=== PATIENT | male | born 1940 | race Caucasian/White ===

== ENCOUNTER 2018-11-03 10:04 | Inpatient (IN) | payer MEDICARE, BC ==
--- NOTE | 2018-10-25 01:45 | NUR ---
Patient Blood glucose was 68, PT was given oral dextrose, blood sugar went up to 73, Pt requested cranberry juice as well. Addendum: 11/04/18 at 0140 by Jason Horowitz RN The date is wrong. This note is for 11/03/18 @ 8029
[~2018-11-03] VITALS: Ht 172.7 cm; Wt 63.6 kg
[~2018-11-03 10:04] MED LIST: CARV-50 PO; CLOP75TA35 PO; DUTA0.5C40 PO; GLIP-126 PO; METF1000 PO; NOR5T PO; ZINC50TA37 PO
[2018-11-03 10:26] LABS: BASOPHILS # (AUTO) 0.1 X10'3 (0-0.2); BASOPHILS % (AUTO) 1.1 % (0-1); EOSINOPHILS # (AUTO) 0.6 X10'3 (0-0.9); EOSINOPHILS % (AUTO) 6.7 % (0-6); HEMOGLOBIN 11.4 g/dl (14.0-17.9); LYMPHOCYTES # (AUTO) 2.1 X10'3 (1.1-4.8); LYMPHOCYTES % (AUTO) 23.5 % (21-51); MEAN CORPUSCULAR HEMOGLOBIN 28.4 PG (27.0-31.0); MEAN CORPUSCULAR HGB CONC 33.5 g/dL (33.0-36.5); MEAN CORPUSCULAR VOLUME 84.6 FL (78-98); MEAN PLATELET VOLUME 7.9 FL (7.4-10.4); MONOCYTES # (AUTO) 0.4 X10'3 (0-0.9); MONOCYTES % (AUTO) 4.8 % (2-12); NEUTROPHILS # (AUTO) 5.6 X10'3 (1.8-7.7); NEUTROPHILS % (AUTO) 63.9 % (42-75); PLATELET COUNT 184 X10'3 (140-440); RED BLOOD COUNT 4.02 X10'6 (4.70-6.10); RED CELL DISTRIBUTION WIDTH 13.7 % (11.5-14.5); WHITE BLOOD COUNT 8.8 X10'3 (4.5-11.0)
[2018-11-03 10:43] LABS: ALANINE AMINOTRANSFERASE 22 U/L (12-78); ALBUMIN 3.4 G/DL (3.4-5.0); ALKALINE PHOSPHATASE 69 IU/L (46-116); ANION GAP 11 (8-16); ASPARTATE AMINO TRANSFERASE 19 U/L (10-37); BILIRUBIN,TOTAL 0.3 MG/DL (0.1-1.0); BLOOD UREA NITROGEN 52 MG/DL (7-18); BUN/CREATININE RATIO 13.4 (5.4-32.0); CALCIUM 8.3 MG/DL (8.5-10.1); CHLORIDE 113 MMOL/L (99-107); CREATININE 3.89 MG/DL (0.60-1.10); GLUCOSE 67 MG/DL (70-104); POTASSIUM 4.9 MMOL/L (3.5-5.1); SODIUM 146 MMOL/L (135-145); TOTAL PROTEIN 6.7 G/DL (6.4-8.2); eGFR 15 ML/MIN
[2018-11-03 10:44] LABS: PARTIAL THROMBOPLASTIN TIME 30 SECONDS (22-32)
[2018-11-03] MEDS ORDERED: dextrose 10% 250ml bag IV ONE (10:45)
[2018-11-03 10:47] LABS: TROPONIN I < 0.04 NG/ML (0.0-0.05)
[2018-11-03] MEDS ORDERED: normal saline 1000ml 1,000 ML IV ONE (11:00)
--- NOTE | 2018-11-03 11:00 | NUR ---
CT SCAN RESULTS GIVEN TO PATIENT AND FAMILY. PATIENT DRANK 6 OZ. JUICE AND RETAINED WITHOUT EVIDENCE OF GAGGING OR CHOKING. SWALLOW REFLEX NORMAL.
[2018-11-03] MEDS ORDERED: aspirin 325mg tablet PO ONE (11:10)
[2018-11-03] MEDS ORDERED: magnesium hydroxide 30ml (MOM) UD suspension PO PRN (11:25)
[2018-11-03] MEDS ORDERED: glucagon, human recombinant 1mg kit SUBCUT PRN (11:25)
[2018-11-03] MEDS ORDERED: insulin Lispro (HumaLOG) vial - multi-dose SQ SCH (11:25)
[2018-11-03] MEDS ORDERED: mag hydrox/Alum hydrox/simeth 30ml oral suspension PO PRN (11:25)
[2018-11-03] MEDS ORDERED: MESSAGE TO PHARMACY PO ONE (11:25)
[2018-11-03] MEDS ORDERED: ondansetron/PF 4mg/2ml inj IV PRN (11:25)
[2018-11-03] MEDS ORDERED: dextrose 50%-water 50ml dispensing syringe IV PRN ×2 (11:25)
[2018-11-03] MEDS ORDERED: acetaminophen 325mg tablet PO PRN ×2 (11:25)
[2018-11-03] MEDS ORDERED: morphine 2 MG/ML inj. syringe IV PRN ×2 (11:25)
[2018-11-03] MEDS ORDERED: dextrose ORAL solution 15 GM/59 ML bottle PO PRN ×2 (11:25)
[2018-11-03] MEDS ORDERED: HYDROcodone/acetaminophen 5mg/325mg tablet PO PRN (11:25)
[2018-11-03] MEDS ORDERED: SIMV20TA5 PO (11:26)
[2018-11-03] MEDS ORDERED: CARV6.253 PO (11:26)
[2018-11-03] MEDS ORDERED: AMLO-94 PO (11:28)
[2018-11-03] MEDS ORDERED: GLIP1TAB6 PO (11:28)
[2018-11-03 12:06] LABS: HEMOGLOBIN A1C 6.1 % (4.5-6.2)
[2018-11-03] MEDS ORDERED: Dextrose 10%-water 1000ml IV soln IV ONE (12:10)
--- NOTE | 2018-11-03 12:16 | NUR ---
PATIENT WILL BE ADMITTED TO ROOM 4022-A. ATTEMPT TO CALL REPORT, BUT NURSE WILL CALL BACK WHEN AVAILABLE.
[2018-11-03] MEDS: zinc sulfate 220mg capsule PO SCH (13:00)
--- NOTE | 2018-11-03 13:06 | NUR ---
REPORT TO ITA CARBAJAL ON ORTHO-NEURO UNIT. PATIENT WILL BE TRANSFERRED TO INPATIENT BED WHEN KIDNEY US IS COMPLETED, WHICH IS IN PROGRESS AT THE BEDSIDE AT THIS TIME.
[2018-11-03 13:30] VITALS: BP 117/69
--- NOTE | 2018-11-03 13:30 | NUR ---
Pt transferred from ER to 4022a via gurney to bed. Pt OOB with CGA and ambulated to bathroom and back to bed without any difficulty. VSS. Pt denied any pain or discomfort but reported generalized weakness.
--- NOTE | 2018-11-03 13:45 | NUR ---
DM consult: A1c is 6.1; DM ed not warranted at this time. Will continue to follow. Addendum: 11/03/18 at [address] Amended: Links added.
[2018-11-03] MEDS: normal saline 1000ml 1,000 ML IV SCH (14:29)
[2018-11-03 18:00] VITALS: BP 189/73
--- NOTE | 2018-11-03 18:48 | NUR ---
Problems reprioritized. Patient report given, questions answered & plan of care reviewed with Earnest JEAN BAPTISTE.
--- NOTE | 2018-11-03 19:00 | NUR ---
Patient in room ORTHO 4022. I have received report from Dolores JEAN BAPTISTE and had the opportunity to ask questions and assume patient care.
[2018-11-03] MEDS: heparin, porcine 5000 units/ml vial SQ SCH (20:36)
[2018-11-03] MEDS: atorvastatin 10mg tablet PO SCH (20:37)
[2018-11-03] MEDS: carVEDilol 3.125mg tablet PO SCH (20:37)
[2018-11-03] MEDS ORDERED: insulin glargine (Lantus) pen - multi-dose SQ SCH (21:00)
[2018-11-03 22:00] VITALS: BP_SYST 113; BP_SYST 163; BP_SYST 186; BP_DIAS 59; BP_DIAS 71; BP_DIAS 72
[2018-11-04] MEDS: normal saline 1000ml 1,000 ML IV SCH ×4 (00:10→21:59)
[2018-11-04 05:09] LABS: CLARITY,URINE CLEAR (Clear); COLOR,URINE YELLOW (Yellow); GLUCOSE, URINE 100 mg/dl (Neg); KETONES,URINE NEGATIVE (Neg); LEUKOCYTE ESTERASE ,URINE NEGATIVE (Neg); NITRITES, URINE NEGATIVE (Neg); OCCULT BLOOD,URINE TRACE-INTACT (Neg); PH,URINE 5.5 (4.8-8.0); PROTEIN,URINE 100 mg/dl (Neg); UROBILINOGEN,URINE 0.2 E.U/dL (0.2-1.0)
[2018-11-04 05:11] LABS: UA COLLECTION TYPE CLN CATCH MIDSTREAM
[2018-11-04 05:17] LABS: COARSE GRANULAR CAST 0-3 /LPF (NEGATIVE)
[2018-11-04 05:18] LABS: BACTERIA,URINE NONE SEEN /HPF (Neg); MUCUS STRANDS NONE SEEN /LPF (Neg); RBC,URINE 0-2 /HPF (0-2); SQUAMOUS EPITHELIAL CELL,UR FEW /LPF (FEW); WBC,URINE NONE SEEN /HPF (0-4)
[2018-11-04 06:00] VITALS: BP 147/59
--- NOTE | 2018-11-04 06:55 | NUR ---
Patient in room ORTHO 4022. I have received report from Earnest JEAN BAPTISTE and had the opportunity to ask questions and assume patient care.
[2018-11-04] MEDS: carVEDilol 3.125mg tablet PO SCH ×2 (07:36→20:40)
[2018-11-04] MEDS: heparin, porcine 5000 units/ml vial SQ SCH ×2 (07:36→20:40)
[2018-11-04 07:37] LABS: BASOPHILS # (AUTO) 0.1 X10'3 (0-0.2); BASOPHILS % (AUTO) 1.4 % (0-1); EOSINOPHILS # (AUTO) 0.4 X10'3 (0-0.9); EOSINOPHILS % (AUTO) 7.2 % (0-6); HEMATOCRIT 28.1 % (42.0-52.0); HEMOGLOBIN 9.5 g/dl (14.0-17.9); LYMPHOCYTES # (AUTO) 1.7 X10'3 (1.1-4.8); LYMPHOCYTES % (AUTO) 30.2 % (21-51); MEAN CORPUSCULAR HEMOGLOBIN 28.6 PG (27.0-31.0); MEAN CORPUSCULAR HGB CONC 33.8 g/dL (33.0-36.5); MEAN CORPUSCULAR VOLUME 84.6 FL (78-98); MEAN PLATELET VOLUME 7.8 FL (7.4-10.4); MONOCYTES # (AUTO) 0.3 X10'3 (0-0.9); MONOCYTES % (AUTO) 5.8 % (2-12); NEUTROPHILS % (AUTO) 55.4 % (42-75); PLATELET COUNT 133 X10'3 (140-440); RED BLOOD COUNT 3.32 X10'6 (4.70-6.10); RED CELL DISTRIBUTION WIDTH 13.7 % (11.5-14.5); WHITE BLOOD COUNT 5.5 X10'3 (4.5-11.0)
[2018-11-04] MEDS: lisinopril 20mg tablet PO SCH (07:37)
[2018-11-04] MEDS: amLODIPine 5mg tablet PO SCH (07:38)
[2018-11-04] MEDS: clopidogrel 75mg tablet PO SCH (07:38)
[2018-11-04] MEDS: zinc sulfate 220mg capsule PO SCH (07:38)
[2018-11-04 07:51] LABS: ALBUMIN 2.7 G/DL (3.4-5.0); ANION GAP 9 (8-16); BLOOD UREA NITROGEN 44 MG/DL (7-18); BUN/CREATININE RATIO 12.2 (5.4-32.0); CALCIUM 7.7 MG/DL (8.5-10.1); CHLORIDE 115 MMOL/L (99-107); CHOLESTEROL 83 MG/DL (0-200); CREATININE 3.61 MG/DL (0.60-1.10); GLUCOSE 90 MG/DL (70-104); HDL CHOLESTEROL 41 MG/DL (35-60); LDL CHOLESTEROL 27 MG/DL (50-100); POTASSIUM 5.1 MMOL/L (3.5-5.1); SODIUM 145 MMOL/L (135-145); TOTAL CARBON DIOXIDE 21.5 MMOL/L (24-32); TRIGLYCERIDES 105 MG/DL (20-135); eGFR 16 ML/MIN
[2018-11-04 09:51] VITALS: BP_SYST 154; BP_SYST 159; BP_SYST 162; BP_DIAS 58; BP_DIAS 61; BP_DIAS 64
[2018-11-04] MEDS: dutasteride 0.5 MG capsule PO SCH (12:06)
--- NOTE | 2018-11-04 17:25 | NUR ---
Braden hospitalist [phone] to see if PRN respiratory treatments be ordered, will continue to monitor
--- NOTE | 2018-11-04 17:46 | NUR ---
After taking blood sugar and it being high patient stated he had just had a snack that his family had brought in, will continue to monitor Addendum: 11/04/18 at 1747 by Lance Ayoub RN Amended: Links added.
--- NOTE | 2018-11-04 18:00 | NUR ---
Patient in room ORTHO 4022. I have received report from herman and had the opportunity to ask questions and assume patient care.
--- NOTE | 2018-11-04 18:24 | NUR ---
Problems reprioritized. Patient report given, questions answered & plan of care reviewed with Jose/Wendy JEAN BAPTISTE.
[2018-11-04 19:25] VITALS: BP 180/78
[2018-11-04 20:00] VITALS: BP 177/78
[2018-11-04 20:01] VITALS: BP 177/68
[2018-11-04 20:02] VITALS: BP 172/70
[2018-11-04] MEDS: atorvastatin 10mg tablet PO SCH (20:40)
--- NOTE | 2018-11-04 21:33 | NUR ---
2100 blood sugar 242, gfr 16, dr metzger notified. no new orders.
[2018-11-05] MEDS: amLODIPine 5mg tablet PO SCH (05:44)
[2018-11-05] MEDS: lisinopril 20mg tablet PO SCH (05:49)
[2018-11-05] MEDS: carVEDilol 3.125mg tablet PO SCH ×2 (05:50→19:52)
--- NOTE | 2018-11-05 05:51 | NUR ---
dr metzger notified of systolic bp > 170 throughtout the evening and morning regardless of pt taking routine po bp medication. stated to give morning bp meds now.
[2018-11-05 06:00] VITALS: BP 194/86
[2018-11-05 06:54] LABS: BASOPHILS # (AUTO) 0.1 X10'3 (0-0.2); BASOPHILS % (AUTO) 1.2 % (0-1); EOSINOPHILS # (AUTO) 0.4 X10'3 (0-0.9); EOSINOPHILS % (AUTO) 5.7 % (0-6); HEMATOCRIT 28.3 % (42.0-52.0); HEMOGLOBIN 9.6 g/dl (14.0-17.9); LYMPHOCYTES # (AUTO) 1.5 X10'3 (1.1-4.8); LYMPHOCYTES % (AUTO) 21.6 % (21-51); MEAN CORPUSCULAR HEMOGLOBIN 28.8 PG (27.0-31.0); MEAN CORPUSCULAR HGB CONC 33.9 g/dL (33.0-36.5); MEAN PLATELET VOLUME 8.6 FL (7.4-10.4); MONOCYTES # (AUTO) 0.5 X10'3 (0-0.9); MONOCYTES % (AUTO) 6.4 % (2-12); NEUTROPHILS # (AUTO) 4.6 X10'3 (1.8-7.7); NEUTROPHILS % (AUTO) 65.1 % (42-75); PLATELET COUNT 138 X10'3 (140-440); RED BLOOD COUNT 3.34 X10'6 (4.70-6.10); WHITE BLOOD COUNT 7.1 X10'3 (4.5-11.0)
[2018-11-05 07:01] LABS: ALBUMIN 2.9 G/DL (3.4-5.0); ANION GAP 10 (8-16); BLOOD UREA NITROGEN 37 MG/DL (7-18); BUN/CREATININE RATIO 11.3 (5.4-32.0); CALCIUM 7.7 MG/DL (8.5-10.1); CHLORIDE 115 MMOL/L (99-107); CREATININE 3.26 MG/DL (0.60-1.10); GLUCOSE 138 MG/DL (70-104); POTASSIUM 4.5 MMOL/L (3.5-5.1); SODIUM 145 MMOL/L (135-145); TOTAL CARBON DIOXIDE 19.9 MMOL/L (24-32); eGFR 18 ML/MIN
[2018-11-05 08:22] VITALS: BP_SYST 157; BP_SYST 167; BP_SYST 171; BP_DIAS 65; BP_DIAS 66; BP_DIAS 73
[2018-11-05] MEDS: clopidogrel 75mg tablet PO SCH (08:57)
[2018-11-05] MEDS: dutasteride 0.5 MG capsule PO SCH (08:57)
[2018-11-05] MEDS: zinc sulfate 220mg capsule PO SCH (08:58)
[2018-11-05] MEDS: heparin, porcine 5000 units/ml vial SQ SCH ×2 (08:59→19:52)
[2018-11-05] MEDS: normal saline 1000ml 1,000 ML IV SCH (09:05)
[2018-11-05 10:00] VITALS: BP 162/60
[2018-11-05] MEDS ORDERED: sodium bicarbonate (8.4%) inj. 100 MEQ in dextrose 5%-water 1,000 ML IV SCH (10:15)
[2018-11-05] MEDS: sodium bicarbonate inj. 100 ML in dextrose 5%-water 1,000 ML IV SCH ×2 (11:50→23:49)
[2018-11-05] MEDS: hyDRALAzine 10mg tablet PO SCH ×2 (16:18→23:46)
[2018-11-05 18:00] VITALS: BP 172/74
--- NOTE | 2018-11-05 19:24 | NUR ---
I called Dr. Polk regarding pt's elevated bg's of 280 and 225 today; he gave the approval to start the hyperglycemic control but to start at Level1 and can advance the protocol as needed but do not give any Lantus.
[2018-11-05] MEDS: insulin Lispro (HumaLOG) vial - multi-dose SQ SCH (19:51)
[2018-11-05] MEDS: atorvastatin 10mg tablet PO SCH (21:30)
[2018-11-05 22:00] VITALS: BP_SYST 180; BP_SYST 183; BP_SYST 188; BP_DIAS 70; BP_DIAS 71; BP_DIAS 93
[2018-11-06 01:30] VITALS: BP 183/81
[2018-11-06 05:50] LABS: ALBUMIN 2.7 G/DL (3.4-5.0); ANION GAP 8 (8-16); BLOOD UREA NITROGEN 33 MG/DL (7-18); CALCIUM 7.6 MG/DL (8.5-10.1); CHLORIDE 111 MMOL/L (99-107); CREATININE 3.29 MG/DL (0.60-1.10); GLUCOSE 195 MG/DL (70-104); SODIUM 143 MMOL/L (135-145); TOTAL CARBON DIOXIDE 23.7 MMOL/L (24-32); eGFR 18 ML/MIN
[2018-11-06 05:51] LABS: BASOPHILS % (AUTO) 0.6 % (0-1); EOSINOPHILS # (AUTO) 0.2 X10'3 (0-0.9); EOSINOPHILS % (AUTO) 2.5 % (0-6); HEMATOCRIT 26.9 % (42.0-52.0); HEMOGLOBIN 9.2 g/dl (14.0-17.9); LYMPHOCYTES # (AUTO) 1.3 X10'3 (1.1-4.8); LYMPHOCYTES % (AUTO) 17.6 % (21-51); MEAN CORPUSCULAR HEMOGLOBIN 28.8 PG (27.0-31.0); MEAN CORPUSCULAR HGB CONC 34.1 g/dL (33.0-36.5); MEAN CORPUSCULAR VOLUME 84.4 FL (78-98); MEAN PLATELET VOLUME 8.4 FL (7.4-10.4); MONOCYTES # (AUTO) 0.6 X10'3 (0-0.9); MONOCYTES % (AUTO) 7.7 % (2-12); NEUTROPHILS # (AUTO) 5.3 X10'3 (1.8-7.7); NEUTROPHILS % (AUTO) 71.6 % (42-75); PLATELET COUNT 122 X10'3 (140-440); RED BLOOD COUNT 3.18 X10'6 (4.70-6.10); RED CELL DISTRIBUTION WIDTH 13.8 % (11.5-14.5); WHITE BLOOD COUNT 7.4 X10'3 (4.5-11.0)
[2018-11-06 06:00] VITALS: BP 179/78
--- NOTE | 2018-11-06 06:22 | NUR ---
Problems reprioritized. Patient report given, questions answered & plan of care reviewed with ITA PHAN.
--- NOTE | 2018-11-06 06:30 | NUR ---
Patient in room ORTHO 4022. I have received report from ITA Price and had the opportunity to ask questions and assume patient care.
[2018-11-06] MEDS: hyDRALAzine 10mg tablet PO SCH ×2 (07:31→16:27)
[2018-11-06] MEDS: carVEDilol 3.125mg tablet PO SCH ×2 (07:32→19:31)
[2018-11-06] MEDS: amLODIPine 5mg tablet PO SCH (07:32)
[2018-11-06] MEDS: clopidogrel 75mg tablet PO SCH (07:32)
[2018-11-06] MEDS: zinc sulfate 220mg capsule PO SCH (07:32)
[2018-11-06] MEDS: heparin, porcine 5000 units/ml vial SQ SCH ×2 (07:33→19:32)
[2018-11-06] MEDS: dutasteride 0.5 MG capsule PO SCH (08:00)
[2018-11-06] MEDS: sodium bicarbonate inj. 100 ML in dextrose 5%-water 1,000 ML IV SCH (09:14)
[2018-11-06 10:00] VITALS: BP 167/74
[2018-11-06] MEDS: insulin Lispro (HumaLOG) vial - multi-dose SQ SCH ×2 (13:57→18:51)
[2018-11-06] MEDS: sodium chloride 0.45% 1,000 ML IV SCH (16:27)
[2018-11-06 18:00] VITALS: BP 164/70
--- NOTE | 2018-11-06 18:17 | NUR ---
Problems reprioritized. Patient report given, questions answered & plan of care reviewed with ITA Price.
--- NOTE | 2018-11-06 18:36 | NUR ---
Patient in room ORTHO 4022. I have received report from ITA COBB and had the opportunity to ask questions and assume patient care.
[2018-11-06] MEDS: atorvastatin 10mg tablet PO SCH (19:31)
[2018-11-06 21:08] LABS: % IRON SATURATION 10 % (11-46); IRON 18 UG/DL (53-167); TOTAL IRON BINDING CAPACITY 175 UG/DL (259-388)
[2018-11-06 21:10] LABS: FERRITIN 146 NG/ML (26-388)
[2018-11-06 22:33] VITALS: BP 162/71
[2018-11-07] MEDS: hyDRALAzine 10mg tablet PO SCH ×4 (00:47→23:14)
[2018-11-07 01:50] VITALS: BP 160/79
[2018-11-07] MEDS: sodium chloride 0.45% 1,000 ML IV SCH (05:33)
[2018-11-07 06:26] LABS: ALBUMIN 2.5 G/DL (3.4-5.0); ANION GAP 10 (8-16); BLOOD UREA NITROGEN 33 MG/DL (7-18); BUN/CREATININE RATIO 9.6 (5.4-32.0); CALCIUM 7.3 MG/DL (8.5-10.1); CHLORIDE 108 MMOL/L (99-107); CREATININE 3.45 MG/DL (0.60-1.10); GLUCOSE 78 MG/DL (70-104); POTASSIUM 3.9 MMOL/L (3.5-5.1); SODIUM 142 MMOL/L (135-145); TOTAL CARBON DIOXIDE 24.3 MMOL/L (24-32); eGFR 17 ML/MIN
--- NOTE | 2018-11-07 06:36 | NUR ---
Problems reprioritized. Patient report given, questions answered & plan of care reviewed with ITA PHAN.
[2018-11-07 06:55] LABS: RHEUM FACTOR QUAL REFLEX TITER NEGATIVE (Neg)
[2018-11-07 07:24] LABS: BASOPHILS % (AUTO) 0.8 % (0-1); EOSINOPHILS # (AUTO) 0.2 X10'3 (0-0.9); EOSINOPHILS % (AUTO) 3.4 % (0-6); HEMATOCRIT 25.8 % (42.0-52.0); HEMOGLOBIN 8.9 g/dl (14.0-17.9); LYMPHOCYTES # (AUTO) 1.5 X10'3 (1.1-4.8); LYMPHOCYTES % (AUTO) 24.1 % (21-51); MEAN CORPUSCULAR HEMOGLOBIN 29.1 PG (27.0-31.0); MEAN CORPUSCULAR HGB CONC 34.6 g/dL (33.0-36.5); MEAN CORPUSCULAR VOLUME 84.1 FL (78-98); MEAN PLATELET VOLUME 8.9 FL (7.4-10.4); MONOCYTES # (AUTO) 0.5 X10'3 (0-0.9); MONOCYTES % (AUTO) 7.6 % (2-12); NEUTROPHILS # (AUTO) 4.1 X10'3 (1.8-7.7); NEUTROPHILS % (AUTO) 64.1 % (42-75); PLATELET COUNT 115 X10'3 (140-440); RED BLOOD COUNT 3.07 X10'6 (4.70-6.10); WHITE BLOOD COUNT 6.4 X10'3 (4.5-11.0)
[2018-11-07] MEDS: clopidogrel 75mg tablet PO SCH (08:17)
[2018-11-07] MEDS: carVEDilol 3.125mg tablet PO SCH ×2 (08:17→19:26)
[2018-11-07] MEDS: amLODIPine 5mg tablet PO SCH (08:17)
[2018-11-07] MEDS: zinc sulfate 220mg capsule PO SCH (08:17)
[2018-11-07] MEDS: heparin, porcine 5000 units/ml vial SQ SCH ×2 (08:18→19:27)
[2018-11-07] MEDS: dutasteride 0.5 MG capsule PO SCH (08:25)
[2018-11-07] MEDS: insulin Lispro (HumaLOG) vial - multi-dose SQ SCH ×2 (08:41→19:26)
[2018-11-07] MEDS ORDERED: sodium ferric gluc complex inj 125 MG in normal saline 100ml IV soln 100 ML IV SCH (09:00)
[2018-11-07] MEDS ORDERED: iron sucrose complex injection 200 MG in normal saline 100ml IV soln 100 ML IV SCH (09:15)
[2018-11-07] MEDS: NS IV SCH (10:50)
[2018-11-07] MEDS: IRON SUCROSE COMPLEX IV SCH (10:50)
[2018-11-07 18:00] VITALS: BP 183/84
[2018-11-07] MEDS: atorvastatin 10mg tablet PO SCH (19:27)
[2018-11-07 22:00] VITALS: BP 164/71
[2018-11-08 02:00] VITALS: BP 162/56
[2018-11-08 05:12] LABS: RPR Non Reactive (Non Reactive)
[2018-11-08 06:00] VITALS: BP 164/59
--- NOTE | 2018-11-08 06:09 | NUR ---
Problems reprioritized. Patient report given, questions answered & plan of care reviewed with ITA JUAREZ.
[2018-11-08 06:11] LABS: HBSAG SCREEN Negative (Negative); HEPATITIS C ANTIBODY <0.1 s/co ratio (0.0-0.9)
[2018-11-08 06:25] LABS: BASOPHILS # (AUTO) 0.1 X10'3 (0-0.2); BASOPHILS % (AUTO) 1.2 % (0-1); EOSINOPHILS # (AUTO) 0.3 X10'3 (0-0.9); EOSINOPHILS % (AUTO) 4.7 % (0-6); HEMATOCRIT 26.5 % (42.0-52.0); HEMOGLOBIN 9.2 g/dl (14.0-17.9); LYMPHOCYTES # (AUTO) 1.3 X10'3 (1.1-4.8); LYMPHOCYTES % (AUTO) 21.7 % (21-51); MEAN CORPUSCULAR HEMOGLOBIN 29.5 PG (27.0-31.0); MEAN CORPUSCULAR HGB CONC 34.7 g/dL (33.0-36.5); MEAN CORPUSCULAR VOLUME 85.1 FL (78-98); MEAN PLATELET VOLUME 8.9 FL (7.4-10.4); MONOCYTES # (AUTO) 0.5 X10'3 (0-0.9); MONOCYTES % (AUTO) 9.2 % (2-12); NEUTROPHILS # (AUTO) 3.8 X10'3 (1.8-7.7); NEUTROPHILS % (AUTO) 63.2 % (42-75); PLATELET COUNT 113 X10'3 (140-440); RED BLOOD COUNT 3.11 X10'6 (4.70-6.10); RED CELL DISTRIBUTION WIDTH 13.8 % (11.5-14.5)
[2018-11-08 06:28] LABS: ALBUMIN 2.5 G/DL (3.4-5.0); ANION GAP 11 (8-16); BLOOD UREA NITROGEN 35 MG/DL (7-18); BUN/CREATININE RATIO 9.9 (5.4-32.0); CALCIUM 7.8 MG/DL (8.5-10.1); CHLORIDE 109 MMOL/L (99-107); CREATININE 3.54 MG/DL (0.60-1.10); GLUCOSE 102 MG/DL (70-104); POTASSIUM 3.9 MMOL/L (3.5-5.1); SODIUM 142 MMOL/L (135-145); TOTAL CARBON DIOXIDE 22.5 MMOL/L (24-32); eGFR 17 ML/MIN
--- NOTE | 2018-11-08 06:30 | NUR ---
Patient in room ORTHO 4022. I have received report from Dee JEAN BAPTISTE and had the opportunity to ask questions and assume patient care.
[2018-11-08] MEDS: hyDRALAzine 10mg tablet PO SCH (07:29)
[2018-11-08] MEDS: zinc sulfate 220mg capsule PO SCH (07:29)
[2018-11-08] MEDS: amLODIPine 5mg tablet PO SCH (07:30)
[2018-11-08] MEDS: heparin, porcine 5000 units/ml vial SQ SCH (07:30)
[2018-11-08] MEDS: carVEDilol 3.125mg tablet PO SCH (07:30)
[2018-11-08] MEDS: clopidogrel 75mg tablet PO SCH (07:30)
[2018-11-08] MEDS: NS IV SCH (07:31)
[2018-11-08] MEDS: IRON SUCROSE COMPLEX IV SCH (07:31)
[2018-11-08] MEDS: dutasteride 0.5 MG capsule PO SCH (07:31)
[2018-11-08] MEDS: insulin Lispro (HumaLOG) vial - multi-dose SQ SCH (09:07)
[2018-11-08 10:00] VITALS: BP 152/62
[2018-11-08 11:11] LABS: A/G RATIO 1.2 (0.7-1.7); ALBUMIN 2.8 g/dL (2.9-4.4); BETA GLOBULIN 0.8 g/dL (0.7-1.3); GAMMA GLOBULIN 0.5 g/dL (0.4-1.8); GLOBULIN, TOTAL 2.3 g/dL (2.2-3.9); M-SPIKE Not Observed g/dL (Not Observed); PROTEIN, TOTAL, SERUM 5.1 g/dL (6.0-8.5)
[2018-11-08] MEDS ORDERED: NOR5T PO (12:55)
[2018-11-08] MEDS ORDERED: FERR325T29 PO (12:55)
--- NOTE | 2018-11-08 14:46 | NUR ---
Patient stable for discharge home today with . All instructions given to patient and and questions answered. Patient is to follow up with Dr. Mena in 2 weeks.
[2018-11-09 06:13] LABS: ANTINUCLEAR ANTIBODIES Negative (Negative)
== END 2018-11-08 14:34 | disposition home or self-care (01) | DRG 683 ==
LOC: ER 10:04 → ORTHO 4S 13:31 → CMPBEDREQ 11-06 19:56
PROVIDERS: ADMIT Internal Medicine; ATTEND Family Medicine
DX: N17.9 Acute kidney failure, unspecified (principal); E87.2 Acidosis; I12.9 Hypertensive chronic kidney disease with stage 1 through stage 4 chronic kidney disease, or unspecified chronic kidney disease; N18.4 Chronic kidney disease, stage 4 (severe); E11.649 Type 2 diabetes mellitus with hypoglycemia without coma; E78.5 Hyperlipidemia, unspecified; N40.0 Benign prostatic hyperplasia without lower urinary tract symptoms; E11.22 Type 2 diabetes mellitus with diabetic chronic kidney disease; E86.9 Volume depletion, unspecified; D50.9 Iron deficiency anemia, unspecified; I25.10 Atherosclerotic heart disease of native coronary artery without angina pectoris; Z83.3 Family history of diabetes mellitus; Z86.73 Personal history of transient ischemic attack (TIA), and cerebral infarction without residual deficits; Z87.442 Personal history of urinary calculi; Z87.891 Personal history of nicotine dependence; Z95.5 Presence of coronary angioplasty implant and graft; Z88.5 Allergy status to narcotic agent; I25.2 Old myocardial infarction; Z79.899 Other long term (current) drug therapy; Z79.84 Long term (current) use of oral hypoglycemic drugs; Z90.49 Acquired absence of other specified parts of digestive tract; Z82.49 Family history of ischemic heart disease and other diseases of the circulatory system
CPT/HCPCS: 36415; 70450; 70551; 71045; 76775; 80048; 80053; 80061; 81001; 82728; 82948; 83036; 83540; 83550; 83880; 84155; 84165; 84484; 85025; 85610; 85651; 85730; 86038; 86430; 86592; 86803; 87081; 87340; 93005; 93306; 96361; 96374; 97116; 97162; 97530; 99285; G0378; J1644; J1756; J1815; J2916; J7030